=== PATIENT | female | born 1970 | race Caucasian/White ===

== ENCOUNTER 2019-02-20 13:13 | Emergency (ER) | payer BC ==
[~2019-02-20] VITALS: Ht 167.6 cm; Wt 113.4 kg
[2019-02-20 13:23] VITALS: BP 145/85
--- NOTE | 2019-02-20 13:26 | PHYS DOC ---
Adult General Chief Complaint Chief Complaint: LOWER EXTREMITY SWELLING HPI HPI 48 old female presents with right leg pain and swelling. He should states that she's had increasing crampy pain in the right leg from the mid stone up to her thigh. 2 weeks ago, the patient made a 13 [address] ride. She was referred here by her PCP for concern of DVT. The patient feels like her right leg is more swollen than the left. She has no history of DVT. She denies shortness of breath. She is not on control. She is not a smoker. Review of Systems Review of Systems Constitutional: Denies fever or chills [] Eyes: Denies change in visual acuity, redness, or eye pain [] HENT: Denies nasal congestion or sore throat [] Respiratory: Denies cough or shortness of breath [] Cardiovascular: No additional information not addressed in HPI [] GI: Denies abdominal pain, nausea, vomiting, bloody stools or diarrhea [] : Denies dysuria or hematuria [] Musculoskeletal: Right leg pain[] Integument: Denies rash or skin lesions [] Neurologic: Denies headache, focal weakness or sensory changes [] Endocrine: Denies polyuria or polydipsia [] All other systems were reviewed and found to be within normal limits, except as documented in this note. Allergies Allergies Allergies Coded Allergies Type Severity Reaction Last Updated Verified Penicillins Allergy Unknown 02/20/19 Yes Sulfa (Sulfonamide Antibiotics) Allergy Unknown 02/20/19 Yes Physical Exam Physical Exam Constitutional: Well developed, well nourished, no acute distress, non-toxic appearance. [] HENT: Normocephalic, atraumatic, bilateral external ears normal, oropharynx moist, no oral exudates, nose normal. [] Eyes: PERRLA, EOMI, conjunctiva normal, no discharge. [] Neck: Normal range of motion, no tenderness, supple, no stridor. [] Cardiovascular:Heart rate regular rhythm, no murmur [] Lungs & Thorax: Bilateral breath sounds clear to auscultation [] Abdomen: Bowel sounds normal, soft, no tenderness, no masses, no pulsatile masses. [] Skin: Warm, dry, no erythema, no rash. [] Back: No tenderness, no CVA tenderness. [] Extremities: No tenderness, no cyanosis, no clubbing, ROM intact, no edema. No obvious increase in diameter in the right leg ersus left.[] Neurologic: Alert and oriented X 3, normal motor function, normal sensory function, no focal deficits noted. [] Psychologic: Affect normal, judgement normal, mood normal. [] EKG EKG [] Radiology/Procedures Radiology/Procedures [] Impressions: Right lower extremity venous Doppler ultrasound History: Right leg pain, recent 13 hour car ride. Comparison: None. Procedure: Color flow Doppler, Doppler spectral analysis, and 2D images are obtained with and without compression in the area of the common femoral vein, superficial femoral vein - femoral vein junction, main femoral vein (superficial femoral vein) and popliteal vein. Veins of the proximal calf are also imaged. Findings: There is normal color flow, augmentation, and compressibility of all visualized vein segments. No evidence of right deep venous thrombus is present. Left common femoral vein is also noted to be patent. IMPRESSION: No evidence of right lower extremity deep venous thrombosis. Electronically signed by: Gregorio Pizarro MD (02/20/2019 2:30 PM) [id number] DICTATED AND SIGNED BY: GREGORIO PIZARRO MD DATE: 02/20/19 1430 CC: CLEMENTE HILL DO; ANGELA CLIFTON MD Course & Med Decision Making Course & Med Decision Making Pertinent Labs and Imaging studies reviewed. (See chart for details) The patient's labs are unremarkable. Her ultrasound was negative for DVT. This is likely musculoskeletal pain. She is stable for discharge at this time. [] Dragon Disclaimer Dragon Disclaimer This electronic medical record was generated, in whole or in part, using a voice recognition dictation system. Departure Departure: Impression: Primary Impression: Right leg pain Disposition: 01 HOME, SELF-CARE Condition: STABLE Referrals: ANGELA CLIFTON MD (PCP) Patient Instructions: Musculoskeletal Pain Scripts Hydrocodone Bit/Acetaminophen (NORCO 5-325 TABLET) 1 Each Tablet 1 TAB PO PRN Q6HRS PRN for PAIN, #10 TAB 0 Refills Prov: CLEMENTE HILL DO 02/20/19 CLEMENTE HILL DO Feb 20, 2019 13:26
[2019-02-20 13:43] LABS: BASO # 0.1 x10^3/uL (0.0-0.2); BASO % 1 % (0-3); EOS # 0.2 x10^3/uL (0.0-0.7); EOS % 3 % (0-3); HEMATOCRIT 42.5 % (36.0-47.0); HEMOGLOBIN 14.8 g/dL (12.0-15.5); LYMPH # 2.2 x10^3/uL (1.0-4.8); LYMPH % 30 % (24-48); MEAN CORPUSCULAR HEMOGLOBIN 32 pg (25-35); MEAN CORPUSCULAR HGB CONC 35 g/dL (31-37); MEAN CORPUSCULAR VOLUME 91 fL (79-100); MONO # 0.6 x10^3/uL (0.0-1.1); MONO % 8 % (0-9); NEUT # 4.3 x10^3uL (1.8-7.7); NEUT % 59 % (31-73); PLATELET COUNT 286 x10^3/uL (140-400); RED BLOOD COUNT 4.67 x10^6/uL (3.50-5.40); RED CELL DISTRIBUTION WIDTH 13.2 % (11.5-14.5); WHITE BLOOD COUNT 7.3 x10^3/uL (4.0-11.0)
[2019-02-20 13:56] LABS: ALBUMIN 3.8 g/dL (3.4-5.0); CALCIUM 9.3 mg/dL (8.5-10.1); CREATININE 0.9 mg/dL (0.6-1.0); GFR 66.3; POTASSIUM 3.9 mmol/L (3.5-5.1); TOTAL BILIRUBIN 0.6 mg/dL (0.2-1.0); TOTAL PROTEIN 7.7 g/dL (6.4-8.2)
[2019-02-20] MEDS ORDERED: KETOROLAC 30 MG/ML VIAL. IV ONE (14:10)
[2019-02-20] MEDS ORDERED: ONDANSETRON PF 4 MG/2 ML VIAL. IV ONE (14:15)
[2019-02-20] MEDS ORDERED: MORPHINE SULFATE 2 MG/ML DISP.SYRIN. IV ONE (14:15)
--- NOTE | 2019-02-20 14:33 | RAD ---
Right lower extremity venous Doppler ultrasound History: Right leg pain, recent 13 hour car ride. Comparison: None. Procedure: Color flow Doppler, Doppler spectral analysis, and 2D images are obtained with and without compression in the area of the common femoral vein, superficial femoral vein - femoral vein junction, main femoral vein (superficial femoral vein) and popliteal vein. Veins of the proximal calf are also imaged. Findings: There is normal color flow, augmentation, and compressibility of all visualized vein segments. No evidence of right deep venous thrombus is present. Left common femoral vein is also noted to be patent. IMPRESSION: No evidence of right lower extremity deep venous thrombosis. Electronically signed by: Gregorio Pizarro MD (02/20/2019 2:30 PM) [id number]
[2019-02-20] MEDS ORDERED: MORPHINE SULFATE 4 MG/ML DISP.SYRIN. IV ONE (15:00)
[2019-02-20] MEDS ORDERED: HYDR-3165 PO (15:01)
== END 2019-02-20 15:18 | disposition home or self-care (01) ==
LOC: ER 15:13
DX: M79.604 Pain in right leg (principal); R22.41 Localized swelling, mass and lump, right lower limb; Z88.0 Allergy status to penicillin; Z88.2 Allergy status to sulfonamides
CPT/HCPCS: 36415; 80053; 85025; 93971; 96374; 96375; 99284; J1885; J2270